=== PATIENT | male | born 1940 | race Caucasian/White ===

== ENCOUNTER → 2017-01-16 | Outpatient (CLI) | payer MEDICARE, OTHER ==
[~2017-01-16] MED LIST: BENZ100 PO; DUONI NEB; METO25CR PO; NITR.6 SL; SIMV20 PO; SYMB160A INH; WARF2.5T40 PO; ZITH250T PO; ZOLO50TA PO
[2017-01-16 12:00] LABS: BLOOD GAS BASE EXCESS -0.4 mmol/L (-2-2); BLOOD GAS CARBOXYHEMOGLOBIN 1.9 % (0-4); BLOOD GAS HCO3 23 mmol/L (22-26); BLOOD GAS O2 HGB SATURATION 92 % (90-100); BLOOD GAS OXYGEN CONTENT 17.4 Vol % (12.0-20.0); BLOOD GAS PCO2 36 mmHg (38-42); BLOOD GAS PO2 75 mmHg (61-120); BLOOD GAS TOTAL HGB 13.4 G/DL (12.0-16.0); TEMP CORR TO 98.6
[2017-01-16 12:01] LABS: CRITICAL VALUE NO; DRAW SITE RT RADIAL; FIO2 21 %; NUMBER OF ARTERIAL PUNCTURES 1; STAT NO; ULNAR PULSE PRESENT
--- NOTE | 2017-01-18 12:08 | RSPPFT ---
DATE OF PROCEDURE: 01/16/17 COMMENTS: Spirometry with FVC of 2.9 at 55% of predicted, FEV1 of 1.4 at 34%, FEV1/FVC ratio is decreaed. Flow is decreased at FEF 25, FEF 50, FEF 75 and FEF 25-75. There is a mild response after bronchodilator treatment. Lung volumes show residual volume is normal. TLC is decreased. Diffusion capacity is severely decreased. Flow volume loops indicate an obstructive pattern. Room air arterial blood gases show pH of 7.43, PCO2 of 36, PO2 of 75, BiCarb of 24 and O2 Saturation a 92%. 6-minute walk test shows no de-saturation. IMPRESSION: 1. Severe obstructive lung disease. 2. Mild response after bronchodilator treatment. 3. Restrictive lung disease is also present. 4. Severe loss in diffusion capacity. 5. No de-saturation with ambulation. 6. Blood gases show normal oxygenation.
== END ==
LOC: HRSP 10:49
PROVIDERS: ATTEND Specialist
DX: J44.9 Chronic obstructive pulmonary disease, unspecified (principal)
CPT/HCPCS: 36600; 82805; 94060; 94726; 94729

== ENCOUNTER → 2017-02-18 | Outpatient (CLI) | payer MEDICARE, OTHER | LOC: HRSP 10:08 | PROVIDERS: ATTEND Specialist | DX: J44.9 Chronic obstructive pulmonary disease, unspecified (principal) ==